=== PATIENT | female | born 1985 | race Caucasian/White ===

== ENCOUNTER 2019-03-04 20:56 | Emergency (ER) | payer MEDICAID ==
[~2019-03-04] VITALS: Ht 154.9 cm; Wt 86.2 kg
[~2019-03-04 20:56] MED LIST: ESCI5TAB PO
[2019-03-04 20:59] VITALS: BP 115/91
--- NOTE | 2019-03-04 21:10 | NUR ---
PT PROVIDED URINE; SAMPLE AT BEDSIDE. PT AMBULATED W/ STEADY GAIT TO BED 5.
[2019-03-04] MEDS ORDERED: HYDROcodone/APAP 5/325 MG 1 TAB TAB PO ONE (21:20)
--- NOTE | 2019-03-04 21:26 | NUR ---
PT C/O LEFT FLANK PAIN RADIATING TO LOWER LEFT QUADRANTS/ LEFT SUPRAPUBIC AREA STARTED TUESDAY NIGHT, TODAY IT IS WORSE. PAIN LEVEL 9/10, SHARP PRESSURE PAIN. BOWEL SOUNDS ACTIVE X4 QUADRANTS. ABDOMEN TENDER TO TOUCH. LAST BM TODAY. PT STATES SHE HAS SLIGHT NAUSEA. NO BURNING UPON URINATION. ALLERGY TO MOTRIN. NO MED HX. SAFETY MEASURES IN PLACE. WAITING FOR ERMD.
--- NOTE | 2019-03-04 21:32 | NUR ---
LAB AT BEDSIDE
[2019-03-04 21:43] LABS: BASOPHILS % (AUTO) 0.4 % (0.0-2.0); EOSINOPHILS # (AUTO) 0.2 K/uL (0-0.4); EOSINOPHILS % (AUTO) 1.4 % (0.0-4.0); HEMATOCRIT 38.2 % (36-48); HEMOGLOBIN 12.7 g/dL (12.0-16.0); LYMPHOCYTES % (AUTO) 23.7 % (20.5-51.1); MEAN CORPUSCULAR HEMOGLOBIN 28 pg (27-31); MEAN CORPUSCULAR HGB CONC 33 g/dL (33-37); MEAN CORPUSCULAR VOLUME 83.3 fL (80-94); MONOCYTES # (AUTO) 0.5 K/uL (0.8-1.0); MONOCYTES % (AUTO) 4.2 % (1.7-9.3); NEUTROPHILS # (AUTO) 8.9 K/uL (1.8-7.7); NEUTROPHILS % (AUTO) 70.3 % (42.2-75.2); PLATELET COUNT (AUTO) 253 K/uL (140-450); RED BLOOD CELL COUNT(AUTO) 4.58 MIL/uL (4.20-5.40); RED CELL DISTRIBUTION WIDTH 13.5 % (11.6-13.7); WHITE BLOOD COUNT (AUTO) 12.6 K/uL (4.8-10.8)
--- NOTE | 2019-03-04 21:58 | NUR ---
PT STATED PAIN LEVEL DECREASED 03/07. VSS. WILL CONTINUE TO MONITOR.
[2019-03-04 22:17] LABS: ANION GAP 11.7 (8-16); CARBON DIOXIDE 28.9 mmol/L (21-32); CREATININE 0.8 mg/dL (0.6-1.3); POTASSIUM 3.6 mmol/L (3.5-5.1)
[2019-03-04 22:20] LABS: ALBUMIN 3.4 g/dL (3.4-5.0); TOTAL BILIRUBIN 0.3 mg/dL (0.0-1.0)
[2019-03-04 22:53] LABS: APPEARANCE,URINE SL CLOUDY (CLEAR); BILIRUBIN,URINE NEGATIVE (NEGATIVE); BLOOD, URINE NEGATIVE (NEGATIVE); COLOR,URINE YELLOW (YELLOW); LEUKOCYTE ESTERASE ,URINE NEGATIVE (NEGATIVE); NITRITE, URINE NEGATIVE (NEGATIVE); PH,URINE 6.5 (5.0-9.0); UGLUCOSE NEGATIVE (NEGATIVE)
[2019-03-04 23:12] VITALS: BP 115/91
--- NOTE | 2019-03-04 23:12 | NUR ---
Patient discharged with v/s stable. Written and verbal after care instructions given and explained.PT MADE AWARE TO DRINK PLENTY OF FLUIDS. Patient alert, oriented and verbalized understanding of instructions. Ambulatory with steady gait. All questions addressed prior to discharge. ID band removed. Patient advised to follow up with PMD. Rx of NORCO given. Patient educated on indication of medication including possible reaction and side effects. Opportunity to ask questions provided and answered.
== END 2019-03-04 23:12 | disposition home or self-care (01) ==
LOC: MED 20:56
DX: N20.0 Calculus of kidney (principal); R10.9 Unspecified abdominal pain; Z88.6 Allergy status to analgesic agent; Z79.899 Other long term (current) drug therapy
CPT/HCPCS: 36415; 80053; 81002; 81003; 81025; 85025; 99284